=== PATIENT | male | born 1985 | race Caucasian/White ===

== ENCOUNTER 2021-11-30 12:19 | Emergency (ER) | payer OTHER ==
[~2021-11-30] VITALS: Ht 182.9 cm; Wt 95.2 kg
[2021-11-30 12:25] VITALS: BP 141/75
[2021-11-30] MEDS ORDERED: oxyCODONE/APAP 5/325 1 TAB TABLET PO ONE (13:00)
[2021-11-30] MEDS ORDERED: ORPHENADRINE CITRATE 60 MG/2 ML VIAL. IM ONE (13:00)
--- NOTE | 2021-11-30 13:13 | PHYS DOC ---
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 He states from then on its progressively gotten worse to where it is too painful to walk. He states if he lays down flat he is fine. He states that he can move his legs and he can walk but it is painful. He denies weakness in extremities, loss of bowel or bladder, numbness or tingling. He states he took 800 mg ibuprofen but it is not cutting the pain. Rates his pain a 0 laying flat. Rates it a 10 out of 10 standing and walking. Review of Systems: Review of Systems: Constitutional: Denies fever or chills. [] Eyes: Denies change in visual acuity. [] HENT: Denies nasal congestion or sore throat. [] Respiratory: Denies cough or shortness of breath. [] Cardiovascular: Denies chest pain or edema. [] GI: Denies abdominal pain, nausea, vomiting, bloody stools or diarrhea. [] : Denies dysuria. [] Musculoskeletal: + back pain or denies joint pain. [] Integument: Denies rash. [] Neurologic: Denies headache, focal weakness or sensory changes. [] Endocrine: Denies polyuria or polydipsia. [] Lymphatic: Denies swollen glands. [] Psychiatric: Denies depression or anxiety. [] Heart Score: C/O Chest Pain: No Allergies: Allergies: Allergies Coded Allergies Type Severity Reaction Last Updated Verified No Known Drug Allergies 11/30/21 No Physical Exam: PE: Constitutional: Well developed, well nourished, no acute distress, non-toxic appearance. [] HENT: Normocephalic, atraumatic, bilateral external ears normal, oropharynx moist, no oral exudates, nose normal. [] Eyes: PERRLA, EOMI, conjunctiva normal, no discharge. [] Neck: Normal range of motion, no tenderness, supple, no stridor. [] Cardiovascular:Heart rate regular rhythm, no murmur [] Lungs & Thorax: Bilateral breath sounds clear to auscultation [] Abdomen: Bowel sounds normal, soft, no tenderness, no masses, no pulsatile masses. [] Skin: Warm, dry, no erythema, no rash. [] Back: Mid to lower tenderness, no CVA tenderness. [] Extremities: No tenderness, no cyanosis, no clubbing, ROM intact, no edema. [] Neurologic: Alert and oriented X 3, normal motor function, normal sensory function, no focal deficits noted. [] Psychologic: Affect normal, judgement normal, mood normal. [] Current Patient Data: Vital Signs: Vital Signs Date Time Temp Pulse Resp B/P (MAP) Pulse Ox O2 Delivery O2 Flow Rate FiO2 11/30/21 12:25 98.4 64 18 141/75 (97) 99 Room Air 98.4 EKG: EKG: [] Radiology/Procedures: Radiology/Procedures: [] Course & Med Decision Making: Course & Med Decision Making Pertinent Labs and Imaging studies reviewed. (See chart for details) See HPI. Alert and oriented x4. Ambulatory with a very slow gait. Moving all extremities equally equal strength and stunt man. Neurologically intact. No saddle anesthesia. No signs of injury. No extremity swelling. Skin pink warm and dry. Speaks in full clear sentences. Patient is given Norflex and Percocet in the ED. Patient states he is calling his doctor on Thursday. Patient will continue taking ibuprofen, Percocet, medrol dose pack and Zanaflex at home. Patient denies any sharp shooting pain. He states that it feels exactly like it did the last time before he had the MRI done to diagnose a bulging disc. [] Dragon Disclaimer: Carisa Disclaimer: This electronic medical record was generated, in whole or in part, using a voice recognition dictation system. Departure Departure Impression: Primary Impression: Back pain Qualified Codes: M54.50 - Low back pain, unspecified Disposition: HOME / SELF CARE / HOMELESS Condition: STABLE Referrals: REX LEMUS MD Patient Instructions: Back Pain, Adult Additional Instructions: Return for loss of bowel or bladder, weakness in extremities, intolerable pain not controlled with medications, numbness in extremities. Follow-up by calling your doctor on Thursday. Rest. Try using heating pad also. Take medications as prescribed and with food. Remember these medications will make you sleepy do not drive or work on these medications. Scripts Tizanidine Hcl (ZANAFLEX) 4 Mg Tablet 1 TAB PO TID for 30 Days, #90 TAB 0 Refills Prov: TUCKER ENCISO APRN 11/30/21 Methylprednisolone (MEDROL) 4 Mg Tab.ds.pk 1 PKG PO UD, #1 PKG Prov: TUCKER ENCISO APRN 11/30/21 Oxycodone HCl/Acetaminophen (Percocet 5-325 mg Tablet) 1 Each Tablet 1 TAB PO QIDPRN PRN for PAIN MDD 4 Tablet(s) for 5 Days, #20 TAB 0 Refills Prov: TUCKER ENCISO APRN 11/30/21 TUCKER ENCISO APRN Nov 30, 2021 13:13
[2021-11-30] MEDS ORDERED: OXYC-325 PO (13:26)
[2021-11-30] MEDS ORDERED: TIZA4TAB8 PO (13:26)
[2021-11-30] MEDS ORDERED: METH4TAB2 PO (13:26)
== END 2021-11-30 13:40 | disposition home or self-care (01) ==
LOC: ER 12:19
DX: M54.50 Low back pain, unspecified (principal)
CPT/HCPCS: 96372; 99283; J2360